=== PATIENT | female | born 1945 | race Caucasian/White ===

== ENCOUNTER 2020-05-20 14:40 | Outpatient (CLI) | payer MEDICARE, SELFPAY ==
--- NOTE | ~2020-05-20 | MM_ITS ---
EXAMINATION: MM screening ric BI w kimberley HISTORY: Screening TECHNIQUE: Craniocaudal and mediolateral oblique 3-D tomosynthesis images were obtained and synthetic 2-D images were generated. CAD analysis was submitted and interpreted. COMPARISON: Comparison to multiple prior studies sequentially, with oldest reviewed study dated 10/20. BREAST PARENCHYMAL COMPOSITION: Breast composed of scattered areas of fibroglandular density FINDINGS: Breast asymmetries are stable. There is no evidence of suspicious mass, calcification, or a rchitectural distortion to suggest malignancy in either breast. There has been no suspicious interval change. IMPRESSION: 1. No mammographic evidence of malignancy. 2. Recommend routine screening mammography in one year. BI-RADS Category 1: Negative Reviewed, dictated and finalized at location A.
--- NOTE | ~2020-05-20 | DEXA_ITS ---
Bone Density Report Name: Sravanthi Casey Age: 74 Sex: Female Ethnicity: White Date of : 1945 Indication: osteopenia; monitoring treatment; height loss; Referring Provider: NICOLE SANCHEZ Study: Bone densitometry was performed. Exam Date: May 20, 2020 Accession number: [id number] Bone Density: Region BMD T-score Z-score Classification AP Spine (L1-L4) 0.921 -1.1 1.2 Osteopenia Femoral Neck (Left) 0.729 -1.1 0.9 Osteopenia Total Hip (Left) 0.785 -1.3 0.4 Osteopenia Total Hip Bilateral Avg 0.785 -1.3 0.4 Osteopenia Femoral Neck (Right) 0.663 -1.7 0.3 Osteopenia Total Hip (Right) 0.783 -1.3 0.4 Osteopenia World Health Organization criteria for BMD impression classify patients as: Normal (T-score at or above -1.0), Osteopenia (T-score between -1.0 and -2.5), or Osteoporosis (T-score at or below -2.5). 10-year Fracture Risk: FRAX not reported because: Treated for osteoporosis Previous Exams: Region Exam Age BMD T-score BMD Change BMD Change Date g/cm2 vs Baseline vs Previous AP Spine(L1-L4) 05/20/2020 74 0.921 -1.1 -0.111(-10.8%) -0.017(-1.9%) 07/11/2017 72 0.938 -1.0 -0.094(-9.1%)# -0.051(-5.2%)* 10/20/2014 69 0.989 -0.5 -0.042(-4.1%)# -0.068(-6.5%)# 01/11/2010 64 1.058 0.1 0.026(2.5%)* 0.026(2.5%)* 06/18/2007 61 1.032 -0.1 Total Hip(Left) 05/20/2020 74 0.785 -1.3 -0.061(-7.3%)# 0.017(2.2%) 07/11/2017 72 0.769 -1.4 -0.078(-9.3%)# -0.066(-7.9%)* 10/20/2014 69 0.834 -0.9 -0.013(-1.5%)# -0.035(-4.0%)# 01/11/2010 64 0.869 -0.6 0.022(2.6%) 0.022(2.6%) 06/18/2007 61 0.847 -0.8 Total Hip(Right) 05/20/2020 74 0.783 -1.3 -0.049(-5.9%)# -0.001(-0.2%) 07/11/2017 72 0.785 -1.3 -0.048(-5.8%)# -0.016(-2.0%) 10/20/2014 69 0.801 -1.2 -0.032(-3.8%)# -0.023(-2.8%)# 01/11/2010 64 0.824 -1.0 -0.009(-1.1%) -0.009(-1.1%) 06/18/2007 61 0.833 -0.9 *Denotes significance at 95% confidence level, LSC for AP Spine = 0.022 g/cm2, LSC for Total Hip = 0.027 g/cm2 Clinical Information Provided by Patient: Is being treated for osteoporosis Has used the following medications: Vitamin D, Calcium Patient maximum height was 62 Drinks caffeinated beverages Onset of menses at age 14 Number of children 0 Impression: The patient has low bone mass, based on the Right Femoral Neck T-score. No significant bone loss was observed. Discussion: PATIENT UNDER TREATMEN
== END 2020-05-20 14:41 | disposition home or self-care (01) ==
LOC: ANHIMG 14:41
PROVIDERS: PCP Family Medicine; Visit Provider Obstetrics & Gynecology Gynecology
DX: Z12.31 Encounter for screening mammogram for malignant neoplasm of breast (principal); Z78.0 Asymptomatic menopausal state; M85.89 Other specified disorders of bone density and structure, multiple sites
CPT/HCPCS: 77063; 77067; 77080

== ENCOUNTER 2021-05-26 14:26 | Outpatient (CLI) | payer MEDICARE, SELFPAY ==
--- NOTE | ~2021-05-26 | MM_ITS ---
EXAMINATION: MM screening ric BI w kimberley HISTORY: Screening TECHNIQUE: Craniocaudal and mediolateral oblique 3-D tomosynthesis images were obtained and synthetic 2-D images were generated. CAD analysis was submitted and interpreted. COMPARISON: Comparison to multiple prior studies sequentially, with oldest reviewed study dated 03/27. BREAST PARENCHYMAL COMPOSITION: There are scattered areas of fibroglandular density. FINDINGS: There is no evidence of suspicious mass, calcification, or architectural distortion to sugg est malignancy in either breast. There has been no suspicious interval change. IMPRESSION: 1. No mammographic evidence of malignancy. 2. Recommend routine screening mammography in one year. BI-RADS Category 1: Negative Reviewed, dictated and finalized at location A.
== END 2021-05-26 14:27 | disposition home or self-care (01) ==
LOC: ANHIMG 14:28
PROVIDERS: PCP Family Medicine; Visit Provider Obstetrics & Gynecology Gynecology
DX: Z12.31 Encounter for screening mammogram for malignant neoplasm of breast (principal)
CPT/HCPCS: 77063; 77067

== ENCOUNTER 2022-08-10 15:26 | Outpatient (CLI) | payer MEDICARE, SELFPAY ==
--- NOTE | ~2022-08-10 | DEXA_ITS ---
Bone Density Report Name: MIMI MAYBERRY Age: 77 Sex: Female Ethnicity: White Date of : 1945 Indication: postmenopausal; screening for osteoporosis; height loss; Referring Provider: NIOCLE SANCHEZ Study: Bone densitometry was performed. Exam Date: August 10, 2022 Accession number: [id number] Bone Density: Region BMD T-score Z-score Classification AP Spine(L1-L4) 0.904 -1.3 1.2 Osteopenia Femoral Neck (Left) 0.740 -1.0 1.1 Normal Total Hip (Left) 0.802 -1.2 0.7 Osteopenia Femoral Neck (Right) 0.616 -2.1 0.0 Osteopenia Total Hip (Right) 0.730 -1.7 0.1 Osteopenia Total Hip Mean 0.766 -1.5 0.4 Osteopenia World Health Organization criteria for BMD impression classify patients as: Normal (T-score at or above -1.0), Osteopenia (T-score between -1.0 and -2.5), or Osteoporosis (T-score at or below -2.5). 10-year Fracture Risk(1): Major Osteoporotic Fracture 14% Hip Fracture 3.6% Reported Risk Factors: [place] (), Neck BMD=0.616, BMI=29.2 (1) FRAX(R) Version 3.08. Fracture probability calculated for an untreated patient. Fracture probability may be lower if the patient has received treatment. Clinical Information Provided by Patient: Has used the following medications: Vitamin D Patient maximum height was 62 Drinks caffeinated beverages Onset of menses at age 14 Number of children 0 Impression: The patient has low bone mass, based on the Right Femoral Neck T-score. The patient has an estimated ten-year risk of hip fracture of 3.6% and an estimated ten-year risk of major fracture of 14%, based on the WHO FRAX algorithm. Discussion: BONE DENSITY IS LOW AT ONE OR MORE SKELETAL SITES. THE PATIENT'S BMD AND CLINICAL RISK FACTORS CONTRIBUTE TO THIS PATIENT'S INCREASED RISK OF FRACTURE. This patient's lowest T-score is low at one or more skeletal sites. It meets the World Health Organization's (WHO) criteria for ?low bone mass? (T-score between -1.0 and -2.5). The patient's 10-year risk of hip fracture as calculated by FRAX exceeds the threshold where pharmacological therapy is recommended by the National Osteoporosis Foundation (NOF). However, all treatment decisions require clinical judgment and consideration of individual patient factors, including patient preferences, comorbidities, previous drug use, risk factors not captured in the FRAX model (e.g., frailty, falls, vitamin D deficiency, increased bone turnover, interval significant decline in bone density) and possible under or overestimation of fracture risk by FRAX. The patient should follow a healthful lifestyle (good nutrition with adequate calcium and vitamin D, and appropriate weight-bearing exercise). Follow-Up: Consider a repeat BMD and Vertebral Fracture Assessment (VFA) exam in 2 years or sooner
--- NOTE | ~2022-08-10 | MM_ITS ---
EXAMINATION: MM screening ric BI w kimberley HISTORY: Screening mammogram TECHNIQUE: Craniocaudal and mediolateral oblique 3-D tomosynthesis images were obtained and synthetic 2-D images were generated. CAD analysis was submitted and interpreted. COMPARISON: 05/26/2021, 05/20/2020, 04/15/2019 bilateral screening mammogram examinations BREAST PARENCHYMAL COMPOSITION: There are scattered areas of fibroglandular density. FINDINGS: There is no evidence of suspicious mass, calcification, or architectural distortion to sugg est malignancy in either breast. There has been no suspicious interval change. IMPRESSION: 1. No mammographic evidence of malignancy. 2. Recommend routine screening mammography in one year. BI-RADS Category 1: Negative Reviewed, dictated and finalized at location A. STRIAL MACHINE OPERATOR
== END 2022-08-10 15:27 | disposition home or self-care (01) ==
PROVIDERS: PCP Family Medicine; Visit Provider Obstetrics & Gynecology Gynecology
DX: Z12.31 Encounter for screening mammogram for malignant neoplasm of breast (principal); Z78.0 Asymptomatic menopausal state; M85.88 Other specified disorders of bone density and structure, other site; M85.852 Other specified disorders of bone density and structure, left thigh; M85.851 Other specified disorders of bone density and structure, right thigh
CPT/HCPCS: 77063; 77067; 77080

== ENCOUNTER 2023-06-28 12:39 | Outpatient (CLI) | payer MEDICARE, SELFPAY ==
--- NOTE | ~2023-06-28 | US_ITS ---
EXAMINATION: US pelvic complete w TV DATE: 06/28/2023 14:39 INDICATION: Postmenopausal bleeding TECHNIQUE: Multiple transabdominal and endovaginal sonographic images of the pelvis were obtained. COMPARISON: None. FINDINGS: The uterus measures 7.4 x 3.4 x 4.4 cm. The endometrial complex measures 1.9 cm. The left o vary is not visualized however no left adnexal abnormality is seen. The right ovary measures 1.0 x 1. 6 x 1.0 cm. There is normal vascular flow in the right ovary. There is no free fluid in the pelvis. IMPRESSION: 1. Endometrial thickening which may be due to hyperplasia, polyp, or malignancy. Endometrial sampling is recommended. Reviewed, dictated and finalized at location F. IMPRESSION: 1. Endometrial thickening which may be due to hyperplasia, polyp, or malignancy . Endometrial sampling is recommended.
== END 2023-06-28 12:40 | disposition home or self-care (01) ==
PROVIDERS: PCP Family Medicine; Visit Provider Obstetrics & Gynecology Gynecology
DX: N95.0 Postmenopausal bleeding (principal)
CPT/HCPCS: 76830; 76856

== ENCOUNTER 2023-08-19 02:52 | Day surgery (SDC) | payer MEDICARE, SELFPAY ==
--- NOTE | 2023-08-09 13:33 | PC.NURSE ---
Report to the Outpatient Waiting Room, entrance under the green pavilion located off [facility], at time _1200 on date __08/19/23 . Planned Procedure Time: __1400 . Time changes happen often and if your time is changed the preop area will call you the afternoon before. - You and your visitor will be asked to self-screen and do not enter if you have any COVID symptoms. - A mask is optional within the hospital at this time. Patients may have clear liquids (water, carbonated beverages, clear teas, apple juice) until 3 hours prior to surgery with a maximum of 20 ounces. - No food from midnight until time of surgery - Infants may have breast milk until 4 hours before surgery, formula 6 hours prior to surgery. - Children will be allowed to drink immediately following surgery. If applicable, please bring a bottle or sippy cup to assist with drinking. Juice, water, soda, and popsicles are readily available. For infants on formula, please bring formula the day of surgery. Pacifiers are allowed. Take the following medications with a SIP of water the morning of surgery: ___SERTRALINE DO NOT STOP ANY OF YOUR OTHER PRESCRIPTION MEDICATIONS PRIOR TO SURGERY ?EXCEPT THE FOLLOWING Medications to discontinue per physician NONE Please no make-up, nail belgian, hairspray, perfume, deodorant, or body powder the day of surgery. No jewelry (including any body piercings) or valuables the day of surgery, leave them at home. Please take a shower or bath the night before, or the morning of, surgery with an antibacterial soap. Wear comfortable, loose fitting clothing. Children are encouraged to wear pajamas. - Jewelry must be removed prior to entering the operating room. Rings and piercings that are not removed may be cut off. - The hospital will not accept responsibility for valuables. - Please leave all valuables, including medications, at home the day of surgery. If you are going home after surgery, a licensed team otr truck driver must drive you home. - NO public transportation without another adult if you receive anesthesia. - We recommend that an adult stay with you for 24 hours following discharge. - We also recommend that you do not drive, make important decision, drink alcoholic beverages, or take any drugs that were not prescribed by your health care provider for at least 24 hours after your discharge time. For Pediatric surgeries, we recommend two adults accompany the child home. Follow any additional instructions given to you from your surgeon. If you or anyone in your household have experienced Covid symptoms in the past week, please notify your surgeon or the nurse liaison at the phone number below for possible testing. Telephone instructions given to ____PATIENT and asked if any additional questions and then verbalized understanding. Patient advised to call surgeon office or pre surgery nurse liaison [phone] if any additional questions.
[2023-08-09 13:47] VITALS: BMI 26.5
--- NOTE | 2023-08-19 08:26 | P.HP_ITS ---
History of Present Illness History of Present Illness Consent: Risks, benefits, and alternatives have been discussed and questions answered. Patient agrees to proceed with procedure. Chief complaint: Post Menopausal Bleeding Narrative: Sravanthi Casey is a 78 year old female with postmenopausal bleeding. Patient underwent pelvic ultrasound which showed an endometrium of 19mm. It was recommended to proceed with D&C hysteroscopy to further evaluate. Risks of infection, bleeding, and perforation were reviewed. Possible pathology was also discussed. Patient voiced understanding and agrees to proceed. Review of Systems Review of Systems: not repeated day of surgery; patient states no changes in status [facility] Past Medical History Medical History (Updated 08/19/23 @ 08:29 by Shelley Vargas MD) Anxiety Depression Elevated cholesterol History of benign breast biopsy 1993 and 1996 History of kidney stones Rosacea Social History Social History Smoking packs per day: 1 Smoking cigarettes per day: 20.0 Years smoked: 10 Smoking pack-years: 10.00 Smoking status: Former smoker Tobacco type: cigarettes Smoking end date: 09/09/89 Substance use: current Substance use type: marijuana Last use: 07/10/23 Living arrangements: alone Spiritual care concerns: No Meds Home Medications and Allergies Home Medications Medication Instructions Recorded Confirmed Type atorvastatin 80 mg tablet 80 mg PO DAILY 08/09/23 08/09/23 History celecoxib 200 mg capsule 200 mg PO DAILY 08/09/23 08/09/23 History indapamide 2.5 mg tablet 2.5 mg PO DAILY 08/09/23 08/09/23 History lemborexant 5 mg tablet (Dayvigo) 5 mg PO HS 08/09/23 08/09/23 History omeprazole 20 mg capsule,delayed 20 mg PO DAILY 08/09/23 08/09/23 History release raloxifene 60 mg tablet 60 mg PO DAILY 08/09/23 08/09/23 History sertraline 100 mg tablet 100 mg PO DAILY 08/09/23 08/09/23 History zolpidem 12.5 mg tablet,extended 12.5 mg PO HS 08/09/23 08/09/23 History release,multiphase Allergies Allergy/AdvReac Type Severity Reaction Status Date / Time No Known Allergies Allergy Verified 08/09/23 13:22 Exam Const: General: healthy appearing and alert Orientation/consciousness: patient oriented x3 Resp: Effort & Inspection: normal respiratory effort GI: GI Palp: Yes Soft to palpation, No Tenderness to palpation present (GI) and No Palpable mass present : External Female Exam: normal external appearance Speculum Exam - Vagina: normal appearance of the vagina and normal vaginal discharge Speculum Exam - Cervix: normal appearance of the cervix Bimanual exam- vagina & uterus: uterine size normal and consistency normal Bimanual Exam- Adnexa, other: normal adnexae and No adnexal tenderness Neuro: General: patient oriented x3 Assessment and Plan Assessment and plan (1) Post-menopausal bleeding: Code(s): N95.0 - Postmenopausal bleeding Status: Acute Assessment and Plan: plan to proceed with D&C hysteroscopy
--- NOTE | 2023-08-19 08:26 | WPDHPUPDATE1 ---
History and Physical Update Update Date/Time: 08/19/23 08:26 History and Physical has been reviewed, including an updated exam of the patient. There are NO changes in the patient's condition. Risks, benefits, and alternatives have been discussed and questions answered. Patient agrees to proceed with procedure.
[2023-08-19 12:25] VITALS: BP 144/69; PULSE 70; RESP 20; TEMP 36.3; O2SAT 96
[2023-08-19] MEDS: ACETAMINOPHEN 500 MG TABLET 1000 MG PO (12:28)
[2023-08-19] MEDS: LACTATED RINGERS 1,000 ML 30 ML IV CONT (12:50)
--- NOTE | 2023-08-19 13:07 | P.PNAN_ITS ---
Anes - Initial Pre Proc Eval Procedure: Operation Date: 08/19/23 14:00 Proposed Procedures p Hysteroscopy Dilation and Curettage - Shelley Vargas MD Date/Time: 08/19/23 13:07 Surgeon: Shelley Vargas MD Pre Op Diagnosis: Post Menopausal Bleeding Patient Data Age: 78 Gender: F Height: 1.57 m Weight: 68.15 kg Last Vital Signs Temp 36.3 C L 08/19/23 12:25 Pulse 70 08/19/23 12:25 Resp 20 08/19/23 12:25 BP 144/69 H 08/19/23 12:25 Pulse Ox 96 08/19/23 12:25 O2 Del Method Room Air 08/19/23 12:25 Allergies Allergy/AdvReac Type Severity Reaction Status Date / Time No Known Allergies Allergy Verified 08/19/23 12:24 Home Medications Medication Instructions Recorded Confirmed Type atorvastatin 80 mg tablet 80 mg PO DAILY 08/09/23 08/19/23 History celecoxib 200 mg capsule 200 mg PO DAILY 08/09/23 08/19/23 History indapamide 2.5 mg tablet 2.5 mg PO DAILY 08/09/23 08/19/23 History lemborexant 5 mg tablet (Dayvigo) 5 mg PO HS 08/09/23 08/19/23 History omeprazole 20 mg capsule,delayed 20 mg PO DAILY 08/09/23 08/19/23 History release raloxifene 60 mg tablet 60 mg PO DAILY 08/09/23 08/19/23 History sertraline 100 mg tablet 100 mg PO DAILY 08/09/23 08/19/23 History zolpidem 12.5 mg tablet,extended 12.5 mg PO HS 08/09/23 08/19/23 History release,multiphase Patient hx anesthesia problems: none Family hx anesthesia problems: none Results Review: All pre-operative results and documents have been reviewed as part of the pre- operative evaluation. [facility] Past Medical History Medical History Anxiety Depression Elevated cholesterol History of benign breast biopsy 1993 and 1996 History of kidney stones Rosacea Social History Social History Smoking packs per day: 1 Smoking cigarettes per day: 20.0 Years smoked: 10 Smoking pack-years: 10.00 Smoking status: Former smoker Tobacco type: cigarettes Smoking end date: 09/09/89 Substance use: current Substance use type: marijuana Last use: 07/10/23 Living arrangements: alone Spiritual care concerns: No Anes - Eval Final PreProcedure Day of Procedure 08/19/23 13:07 Patient weight: overweight Heart: regular rate and rhythm Lungs: decreased breath sounds Airway: Mallampati scale class II Neurological: alert and oriented Last oral intake: >/= 8 hours ASA classification: III Emergent: no Anesthetic plan: proceed Anesthesia type and monitoring: general GIVS and standard monitoring Results Review: All pre-operative results and documents have been reviewed as part of the pre- operative evaluation. Informed Consent: The patient's anesthetic plan and its attendant risks and benefits were discussed with the patient/family/POA. Questions were solicited and answers provided to the satisfaction of the patient/family/POA.
[2023-08-19 14:04] VITALS: BP 145/68; PULSE 66; RESP 16; O2SAT 98
--- NOTE | 2023-08-19 14:06 | P.OP_ITS ---
Procedure Note - Detailed Date of Procedure 08/19/23 Pre-op Diagnosis Post Menopausal Bleeding Post-op Diagnosis Same Procedure Performed D&C hysteroscopy Surgeon Shelley Vargas MD Anesthesia MAC Findings The uterus sounds to 8cm. The endometrium is thickened with papillary lesions that are quite vascular. There are also irregular calcifications. Description of Procedure The patient is taken to the operating room and placed in the dorsal lithotomy position. She was prepped and draped in usual sterile fashion. [place] speculum was placed in the vagina and the cervix grasped on the anterior lip with a tenaculum. The uterus is sounded to 8cm. The hysteroscope with not pass the internal cervix therefore the cervix is serially dilated to a 5 Hegar. The hysteroscope was then able to enter the cavity. The above-stated findings were noted and the Aveeta resection device is placed. Throughout the procedure the cavity is very bloody and visualization is minimal. The endometrial lesions are removed to the best of my ability given the circumstances. When visualization went to 0 and the cavity was not able to be cleared with excess fluid, the hysteroscope was removed. The sharp 00 curette was used to curette the endometrium until a good uterine cry was noted in all areas. All instruments are removed. Sponge, needle, and instrument counts are correct per the OR staff. Patient was awakened from anesthesia and taken to recovery in stable condition. Estimated Blood Loss 25 Drains No Packing No Pathology Yes ( Endometrial curettings and shavings) Complications No immediate complications Condition Stable Disposition PACU
[2023-08-19] MEDS: oxyCODONE HCL (*CRX) 2.5 MG TAB IR PO (14:26)
[2023-08-19 14:30] VITALS: BP 168/85; PULSE 53; RESP 16; O2SAT 100
[2023-08-19] MEDS: fentaNYL CITRATE INJ (*CRX) 100 MCG/2 ML VIAL 25 MCG IV PUSH (14:39)
[2023-08-19 15:00] VITALS: BP 153/66; PULSE 46; RESP 16
[2023-08-19 15:15] VITALS: BP 153/66; PULSE 46; RESP 16
== END 2023-08-19 15:25 | disposition home or self-care (01) ==
PROVIDERS: PCP Family Medicine; Visit Provider Obstetrics & Gynecology Gynecology
PROC: 0U5B8ZZ Destruction of Endometrium, Via Natural or Artificial Opening Endoscopic (ICD-10-PCS; CPT 58563; principal; 2023-08-19 14:00)
DX: C54.1 Malignant neoplasm of endometrium (principal); N95.0 Postmenopausal bleeding; E78.00 Pure hypercholesterolemia, unspecified; F41.9 Anxiety disorder, unspecified; F32.A Depression, unspecified; Z87.891 Personal history of nicotine dependence; F12.90 Cannabis use, unspecified, uncomplicated
CPT/HCPCS: 58558; 88305; 88342; 88360; A9270; J2704; J3010; J7120

== ENCOUNTER 2025-04-13 15:00 | Outpatient (CLI) | payer MEDICARE, SELFPAY ==
--- NOTE | ~2025-04-13 | MM_ITS ---
EXAMINATION: MM screening ric BI w kimberley HISTORY: Screening TECHNIQUE: Craniocaudal and mediolateral oblique 3-D tomosynthesis images were obtained and synthetic 2-D images were generated. CAD analysis was submitted and interpreted. COMPARISON: Comparison to multiple prior studies sequentially, with oldest reviewed study dated 07/11. BREAST PARENCHYMAL COMPOSITION: There are scattered areas of fibroglandular density. FINDINGS: There is no evidence of suspicious mass, calcification, or architectural distortion to sug gest malignancy in either breast. IMPRESSION: 1. No mammographic evidence of malignancy. 2. Recommend routine screening mammography in one year. BI-RADS Category 1: Negative Reviewed, dictated and finalized at location B.
--- OUTSIDE RECORDS SUMMARY | 2025-04-13 15:07 | XMS_ITS | Encounter Summary ---
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 [address] [facility] [address] [place] [id number] 04/19/2025 11:25 AM CDT - 04/19/2025 12:10 PM CDT Surgery [facility] [place] [address] [place] [address] Umberto Swift MD [facility] [address] REMOVAL PORT A CATH Scheduled Procedures Name Priority Associated Diagnoses Date/Ti me REMOVAL PORT A CATH NON USE 04/19/2025 11:25 AM CDT documented as of this encounter Procedures Procedure Name Priority Date/Time Associated Diagnosis Comments COLONOSCOPY - SCAN 10/28/2015 12 :00 AM LOW PRESSURE FIRER documented in this encounter Results * COLONOSCOPY - SCAN (10/28/2015 12:00 AM LOW PRESSURE FIRER) Narrative 10/28/2015 12:00 AM LOW PRESSURE FIRER Ordered by an unspecified provider. us Historical Provider Final Res ult documented in this encounter Visit Diagnoses Not on filedocumented in this encounter Care Teams Mine Laborer Relationship Specialty Start Date End Date Kieran Hernández DO PCP - General Family Medicine 02/25/19 documented as of this encounter
--- OUTSIDE RECORDS SUMMARY | 2025-04-13 15:07 | XMS_ITS | Encounter Summary ---
Author Organization [facility] Address [address] [facility] [place] [address] Care Team Providers Care Research Quality Assurance Specialist Name Role Phone Kieran Hernández DO Primary Care Provider + Reason for Referral * Radiology Services (Routine) - Closed Specialty Diagnoses / Procedures Referred By Contac t Referred To Contact CT Scan Diagnoses Endometrial cancer (HCC) Procedures CT Chest Abdomen Pelvis [address] Lane Palmer MD [address] [address] Phone: tel:[phone] fax:[phone] [facility] [address] [place] [address] Phone: tel: fax: Referral ID Status Reason Start Date Expiration Date Visits Re quested Visits Authorized [id number] Closed 03/31/2025 09/27/2025 1 1 Reason for Visit * Radiology Services (Routine) - Closed Specialty Diagnoses / Procedures Referred By Contac t Referred To Contact CT Scan Diagnoses Endometrial cancer (HCC) Procedures CT Chest Abdomen Pelvis W Lane Palmer MD [address] [address] Phone: tel:[phone] fax:[phone] [facility] [address] [place] [address] Phone: tel: fax: Referral ID Status Reason Start Date Expiration Date Visits Re quested Visits Authorized [id number] Closed 03/31/2025 09/27/2025 1 1 Encounter Details Date Type Department Care Team (Latest Contact Info) Description 04/12/2025 8:56 AM CDT - 04/12/2025 11:59 PM CDT Hospital Encounter [facility] Imaging Services - CT Scan [address] [place], [place] [id number] Lane Park MD [address] [address] Discharge Disposition: Home or Self Care Social History Tobacco Use Types Packs/Day Years Used Date Smoking Tobacco: Former Cigarettes Smokeless Tobacco: Never Alcohol Use Standard Drinks/Week Comments Yes 0 (1 standard drink = 0.6 oz pur e alcohol) occassional AUDIT-C Answer Date Recorded Q1: How often do you have a drink containing alc ohol? Monthly or less 10/01/2023 Q2: How many drinks containi ng alcohol do you have on a typical day when you are drinking? 1 or 2 10/01/2023 Q3: How often do you have si x or more drinks on one occasion? 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 Gender Identity Not on file Sexual Orientation Not on file documented as of this encounter Medications at Time of Discharge atorvastatin (Lipitor) 80 MG tablet Take 1 (one) tablet by mouth once daily 08/19/2023 celecoxib (CeleBREX) 100 MG capsule Take 1 (one) capsule by mouth once daily 11/09/2023 indapamide (Lozol) 2.5 MG tablet 07/17/2023 lidocaine-priloc tashi (Emla) 2.5-2.5 % creamIndications :Local Anesthesia Apply to port a cath 30-60 minutes prior to chemotherapy and or labs Reasons: Anesthesia to a Specific Part of the Body 30 g 3 10/17/2023 LORazepam (Ativan) 0.5 MG tabletIndication s:Cancer Chemotherapy-Ind uced Nausea and Vomiting Take 1 (one) tablet by mouth every 8 hours as needed for Anxiety (nausea) Reasons: Nausea and Vomiting caused by Cancer Chemotherapy 30 tablet 3 10/17/2023 omeprazole (PriLOSEC) 20 MG capsule Take 1 (one) capsule by mouth once daily 01/21/2024 ondansetron (Zofran) 8 MG tabletIndication s:Cancer Chemotherapy-Ind uced Nausea and Vomiting Take 1 (one) tablet by mouth every 8 hours as needed for Nausea/Vomiting Reasons: Nausea and Vomiting caused by Cancer Chemotherapy 30 tablet 3 10/17/2023 raloxifene (Evista) 60 MG tablet Take 1 (one) tablet by mouth once daily 12/26/2022 sertraline (Zoloft) 100 MG tablet Take 1 (one) tablet by mouth at bedtime 07/17/2023 spironolactone (Aldactone) 100 MG tablet Take 1 (one) tablet by mouth once daily 07/17/2023 zolpidem (Ambien) 10 MG tablet 11/12/2023 documented as of this encounter Plan of Treatment Upcoming Encounters Date Type Department Care Team (Late st Contact Info) Description 04/21/2025 11:00 AM CDT Office Visit [facility] - DOCUMENT CONTROL COORDINATOR [address] [place] [address] Lane Park MD [address] [place] [address] documented as of this encounter Procedures Procedure Name Priority Date/Time Associated Diagnosis Comments CT CHEST ABDOMEN PELVIS W CONT Routine 04/12/2025 10:42 AM CDT Endometrial cancer (HCC) ISTAT CREATININE Routine 04/12/2025 10:3 0 AM CDT documented in this encounter Results * CT Chest Abdomen Pelvis W Cont (04/12/2025 10:42 AM CDT) Anatomical Region Laterality Modality Chest, Abdomen, Pelvis Computed Tomography 04/12/2025 10:5 6 AM CDT Impressions 04/12/2025 12:43 PM CDT IMPRESSION: 1.No evidence of recurrent or metastatic disease in chest, abdomen, and pelvis. 2.Grossly stable bilateral pulmonary nodules, as described. > Dictated by Magan Felix MD (president sales and marketing). > Dictated by Uniform Attendant I, Pete Lombardo MD have personally reviewed and interpreted this examination/study. > Interpreting Provider: Pete Lombardo MD on 04/12/2025 12:43 PM Narrative 04/12/2025 12:43 PM CDT PROCEDURE: CT CHEST ABDOMEN PELVIS W CONT, DATE/TIME OF EXAM: 04/12/2025 10:43 AM, LOCATION [facility] INDICATION: C54.1: Endometrial cancer (HCC) COMPARISON: CT of chest abdomen and pelvis 05/06/2024. TECHNIQUE: CT of the chest, abdomen, and pelvis was performed after the uneventful administration of 100 mL of Isovue 370 intravenous contrast according to standard protocol. FINDINGS: Port-A-Cath reservoir is again noted in subcutaneous tissues of right upper anterior chest wall with right internal jugular accessed catheter terminating in superior cavoatrial junction. Chest: Lower Neck and Axillae: The imaged thyroid is unremarkable, with previously demonstrated cyst within its right lobe not imagedr. No enlarged axillary or enlarged cervical lymph nodes. Lungs: Minimal bibasilar atelectasis. No pulmonary parenchymal or airway process is otherwise present. No pleural fluid or pneumothorax is present. Multiple pulmonary nodules are noted as below: *A 4 mm lobulated solid nodule in left lung apex (series 4, image 18), unchanged. *9 mm pericystic solid nodule in posterior segment of right upper lobe (series 4, image 33), unchanged. *4 mm peripheral nodule in posterior segment of right upper lobe (series 4, image 38), is less conspicuous in current imaging. *4 mm groundglass nodule in superior segment of right lower lobe (series 4, image 66) is slightly better visualized in current imaging but grossly unchanged. No new pulmonary nodules are identified. Heart and Pericardium: The cardiac chambers are normal in size. No pericardial fluid or thickening is present. Mediastinum and Lourdes: A large partially calcified lymph node in right paratracheal/precarinal region is unchanged and measures up to 5.7 cm in diameter. A few additional smaller calcific mediastinal and right hilar lymph nodes are also unchanged. Thoracic Vasculature: No vascular abnormality is present. Abdomen/pelvis: Liver: Multiple subcentimeter hypoattenuating observations within the right hemiliver are too small to characterize, but likely represent hepatic cysts, given their stability. A few small calcific granulomas are again noted throughout the liver. Gallbladder and Bile Ducts: Normal. Spleen: Multiple calcified granulomas are noted in the spleen, likely sequelae of prior granulomatous disease. Pancreas: Normal. Adrenals: Normal. Kidneys: Redemonstrated grossly unchanged size of multiple bilateral renal cysts, with the largest measuring up to about 6 cm in right and 3 cm left sides in maximal diameters. Gastrointestinal: Redemonstrated a small hiatal hernia. There is suggestion of mild wall thickening of the imaged lower esophagus which may represent esophagitis likely secondary to reflux. The stomach and visualized loops of large and small bowel are otherwise unremarkable. Normal appendix. Mesentery/Peritoneum/Retroperitoneum: No free fluid in the abdomen or pelvis. No free intraperitoneal air. No abdominal or retroperitoneal lymphadenopathy. Bladder: Normal. Reproductive Organs: The uterus is absent. No adnexal lesions are identified. Abdominal Vasculature: Atherosclerotic calcification of the aorta and its branch vessels. Bones: Bone windows demonstrate no suspicious lytic or blastic lesions. Redemonstrated mild superior endplate compression deformity of L1 vertebral body with less than 20% height loss. The visible osseous structures are otherwise intact. Degenerative changes are seen in the spine with grade 1 anterolisthesis of L4 over L5 vertebral body. Soft tissues: Normal. Procedure Note Pete Lombardo MD - 04/12/2025 PROCEDURE: CT CHEST ABDOMEN PELVIS W CONT, DATE/TIME OF EXAM: 04/12/2025 10:43 AM, LOCATION [facility] INDICATION: C54.1: Endometrial cancer (HCC) COMPARISON: CT of chest abdomen and pelvis 05/06/2024. TECHNIQUE: CT of the chest, abdomen, and pelvis was performed after the uneventful administration of 100 mL of Isovue 370 intravenous contrast according to standard protocol. FINDINGS: Port-A-Cath reservoir is again noted in subcutaneous tissues of rightupper anterior chest wall with right internal jugular accessed catheter terminating in superior cavoatrial junction. Chest: Lower Neck and Axillae: The imaged thyroid is unremarkable, withpreviously demonstrated cyst within its right lobe not imagedr. No enlargedaxillary or enlarged cervical lymph nodes. Lungs: Minimal bibasilar atelectasis. No pulmonary parenchymal or airway process is otherwise present. No pleural fluid or pneumothorax ispresent. Multiple pulmonary nodules are noted as below: *A 4 mm lobulated solid nodule in left lung apex (series 4, image 18), unchanged. *9 mm pericystic solid nodule in posterior segment of right upper lobe (series 4, image 33), unchanged. *4 mm peripheral nodule in posterior segment of right upper lobe (series4, image 38), is less conspicuous in current imaging. *4 mm groundglass nodule in superior segment of right lower lobe (series4, image 66) is slightly better visualized in current imaging but grossly unchanged. No new pulmonary nodules are identified. Heart and Pericardium: The cardiac chambers are normal in size. No pericardial fluid orthickening is present. Mediastinum and Lourdes: A large partially calcified lymph node in right paratracheal/precarinal region is unchanged and measures up to 5.7 cm in diameter. A few additional smaller calcific mediastinal and right hilar lymph nodes are also unchanged. Thoracic Vasculature: No vascular abnormality is present. Abdomen/pelvis: Liver: Multiple subcentimeter hypoattenuating observations within theright hemiliver are too small to characterize, but likely represent hepatic cysts, given their stability. A few small calcific granulomas are again noted throughout the liver. Gallbladder and Bile Ducts: Normal. Spleen: Multiple calcified granulomas are noted in the spleen, likely sequelae of prior granulomatous disease. Pancreas: Normal. Adrenals: Normal. Kidneys: Redemonstrated grossly unchanged size of multiple bilateralrenal cysts, with the largest measuring up to about 6 cm in right and 3 cmleft sides in maximal diameters. Gastrointestinal: Redemonstrated a small hiatal hernia. There issuggestion of mild wall thickening of the imaged lower esophagus which mayrepresent esophagitis likely secondary to reflux. The stomach and visualized loopsof large and small bowel are otherwise unremarkable. Normal appendix. Mesentery/Peritoneum/Retroperitoneum: No free fluid in the abdomen or pelvis. No free intraperitoneal air. No abdominal or retroperitoneal lymphadenopathy. Bladder: Normal. Reproductive Organs: The uterus is absent. No adnexal lesions are identified. Abdominal Vasculature: Atherosclerotic calcification of the aorta andits branch vessels. Bones: Bone windows demonstrate no suspicious lytic or blastic lesions. Redemonstrated mild superior endplate compression deformity of [id number] body with less than 20% height loss. The visible osseous structures are otherwise intact. Degenerative changes are seen in the spine with grade1 anterolisthesis of L4 over L5 vertebral body. Soft tissues: Normal. IMPRESSION: 1.No evidence of recurrent or metastatic disease in chest, abdomen, and pelvis. 2.Grossly stable bilateral pulmonary nodules, as described. > Dictated by Magan Felix MD (president sales and marketing). > Dictated by Uniform Attendant I, Pete Lombardo MD have personally reviewed and interpreted this examination/study. > Interpreting Provider: Pete Lombardo MD on 04/12/2025 12:[address] ORDERABLES Final Result * (ABNORMAL) ISTAT CREATININE (04/12/2025 10:30 AM CDT) [facility] Creatinine POCT 1.30 0.60 - 1.30 mg/dL 04/12/2025 10:33 AM CDT [facility] eGFR by CKD-EPI 42(L) >90 mL/min/1.7 3 m2 04/12/2025 10:33 AM CDT [facility] Sample iSTAT DOUG 04/12/2025 10:33 AM CDT [facility] Blood BLOOD SPECIMEN / Unknown 04/12/2025 10:30 AM CDT 04/12/2025 10:[address] Park MD LAB - POINT OF CARE ORDERABLES Final Result [facility] [address] [place] [address] documented in this encounter Visit Diagnoses Diagnosis Endometrial cancer (HCC) Malignant neoplasm of corpus uteri, except isthmus documented in this encounter Administered Medications Inactive Administered Medications - up to 3 most recent administrations Medication Order MAR Action Action Date Dose Rate Site 0.9% NaCl injection 0-10 mL 0-10 mL, Intracatheter, ONCE PRN, Other, Contrast flush, 1 dose, Starting on Sat04/12/25 at 0931, Until Sat04/12/25 at 1026, For administration with contrast. $ Given 04/12/2025 10:26 AM CDT 10 mL barium 2 %(Readi-Cat 2)suspension 450 mL, Oral, ONCE, 1 dose, On Sat04/12/25 at 1000 $ Given - Contrast 04/12/2025 10:26 AM CDT 450 mL barium 2 %(Readi-Cat 2)suspension 450 mL, Oral, ONCE, 1 dose, On Sat04/12/25 at 1000 $ Given - Contrast 04/12/2025 10:26 AM CDT 450 mL iopamidol (Isovue 370) 76 % contrast Intravenous, CONTRAST ONCE, Starting on Sat04/12/25 at 0931, Until Sat04/13/25 at 0147 $ Given - Contrast 04/12/2025 10:26 AM CDT 100 mL documented in this encounter Care Teams Research Quality Assurance Specialist Relationship Specialty Start Date End Date Kieran Hernández DO [address] [place] [address] PCP - General Family Medicine 09/18/23 documented as of this encounter
--- OUTSIDE RECORDS SUMMARY | 2025-04-13 15:07 | XMS_ITS ---
Author Organization [facility] Address [address] [place] [address] Care Team Providers Care Dining Service Supervisor Name Role Phone Kieran Hernández DO Primary Care Provider + Active Problems Problem Noted Date Diagnosed Date Hypomagnesemia 12/17/2023 Hypokalemia 12/17/2023 S/P total hysterectomy and B SO (bilateral salpingo-oophorectomy) 10/30/2023 Endometrial cancer 10/17/2023 Seasonal allergies 10/17/2023 10/30/2023 Postmenopausal osteoporosis 10/17/202310/11 Hyperlipidemia 10/17/2023 10/30/2023 Depressive disorder 10/17/2023 10/30/2023 Chronic renal impairment, stage 3b 04/24/2023 10/30/2023 Overview (10/30/2023): Last Assessment & Plan: Stop nsaid Recheck sma 7 Full code status 04/19/2021 10/30/2023 Overview (10/30/2023): Last Assessment & Plan: No changes Primary osteoarthritis 10/13/2019 Overview (10/30/2023): Last Assessment & Plan: Patient is well controlled. Continue current treatment. Osteopenia after menopause 10/13/201910/30 Overview (10/30/2023): Last Assessment & Plan: Patient is well controlled. Continue current treatment. Essential hypertension 10/13/2019 Overview (10/30/2023): Last Assessment & Plan: Patient is well controlled. Continue current treatment. Primary insomnia 09/16/2017 10/30/2023 Overview (10/30/2023): Last Assessment & Plan: Failed several sleep aides in the past including trazodone, dayvigo. She has been well controlled on ambien skilled nursing. Dyslipidemia 09/19/2016 10/30/2023 Overview (10/30/2023): Last Assessment & Plan: Patient is well controlled. Continue current treatment. Barretts esophagus 09/19/2016 10/30/2023 Overview (10/30/2023): Last Assessment & Plan: Still follows with [facility]. Current Treatment and Therapy Plans ENDOMETRIAL (PACLITAXEL CARBOPLATIN) Q21 DAYS* Plan Start Date:11/05/2023 Plan Provider:Lane Park MD Linked Problems Endometrial cancer (HCC) Treatment Medications CARBOplatin (Paraplatin) Inf usion (AUC Dosing)PACLitaxel (Taxol) in 500 mL infusion PORT MAINTENANCE THERAPY PLAN* Plan Start Date:11/04/2023 Plan Provider:Lane Park MD Linked Problems Endometrial cancer (HCC) Treatment Medications No medications scheduled. Other Current Plans MAGNESIUM SULFATE THERAPY PLAN* Plan Start Date:12/18/2023 Plan Provider:Lane Park MD Linked Problems Hypomagnesemia Treatment Medications No medications scheduled. POTASSIUM CHLORIDE THERAPY PLAN* Plan Start Date:12/18/2023 Plan Provider:Lane Park MD Linked Problems HypomagnesemiaHypokalemia Treatment Medications No medications scheduled. Past Treatment and Therapy Plans No past plan information found. Radiation Treatments * Course C1 - Pelvis 01/06/2024 - 02/10/2024 Treatment Period Energy Fraction Dose Fractions Total Dose Plans Planned Pelvis 01/06/2024 - 02/10/2024 25 / 2 5 4,500 cGy Reference Points Delivered Lifetime Dose Tracking * Chemical Lifetime Dose Automatic Entry Manual Entr y Dose Length Product 492.63 mGy-cm 492.63 mGy-cm 0 mGy- cm
--- OUTSIDE RECORDS SUMMARY | 2025-04-13 15:07 | XMS_ITS | Encounter Summary ---
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 [address] [facility] [address] [place] [address] 04/19/2025 11:25 AM CDT - 04/19/2025 12:10 PM CDT Surgery [facility] [place] [address] [place] [address] Umberto Swift MD [facility] [address] [address] REMOVAL PORT A CATH Scheduled Procedures Name Priority Associated Diagnoses Date/Ti me REMOVAL PORT A CATH NON USE 04/19/2025 11:25 AM CDT documented as of this encounter Procedures Procedure Name Priority Date/Time Associated Diagnosis Comments CARDIOLOGY REPORT 02/15/2016 12: 00 AM CDT documented in this encounter Results * CARDIOLOGY REPORT (02/15/2016 12:00 AM CDT) Anatomical Region Laterality Modality Other Narrative 02/15/2016 12:00 AM CDT Ordered by an unspecified provider. us Historical Provider [facility] Final Result documented in this encounter Visit Diagnoses Not on filedocumented in this encounter Care Teams Repairer Kiln Car Relationship Specialty Start Date End Date Kieran Hernández DO PCP - General Family Medicine 02/25/19 documented as of this encounter
--- OUTSIDE RECORDS SUMMARY | 2025-04-13 15:07 | XMS_ITS | Clinical Summary ---
Author Organization [facility] Address [address] [place] [address] Care Team Providers Care Pharmacy Resident Name Role Phone Kieran Hernández DO Primary Care Provider + Source Comments [facility],non-owned Affiliates and Associated Physician Practices is amultiple site organization consisting of ambulatory clinics and hospital sitesin [place], [place], [place] and [place]. This disclosure is being madepursuant to the Care Everywhere program and may not contain all information available regarding this patient. Last updated 18.[facility] [employer] Allergies Active Allergy Reactions Criticality Noted Date Comments Niacin Rash Medium 09/18/2023 Medications * Be aware that medications may not be up to date on this document. Alwaysverify current medications with the patient. atorvastatin (Lipitor) 80 MG tablet Take 1 (one) tablet by mouth once daily 3 Active indapamide (Lozol) 2.5 MG tablet 3 Active raloxifene (Evista) 60 MG tablet Take 1 (one) tablet by mouth once daily 3 Active sertraline (Zoloft) 100 MG tablet Take 1 (one) tablet by mouth at bedtime 3 Active spironolactone (Aldactone) 100 MG tablet Take 1 (one) tablet by mouth once daily 3 Active ondansetron (Zofran) 8 MG tabletIndicatio ns:Cancer Chemotherapy-In duced Nausea and Vomiting Take 1 (one) tablet by mouth every 8 hours as needed for Nausea/Vomiting Reasons: Nausea and Vomiting caused by Cancer Chemotherapy 30 tablet 3 4 Active LORazepam (Ativan) 0.5 MG tabletIndicatio ns:Cancer Chemotherapy-In duced Nausea and Vomiting Take 1 (one) tablet by mouth every 8 hours as needed for Anxiety (nausea) Reasons: Nausea and Vomiting caused by Cancer Chemotherapy 30 tablet 3 4 Active Additional Information Patient not taking.Reported on 01/20/2025 lidocaine-prilo caleb (Emla) 2.5-2.5 % creamIndication s:Local Anesthesia Apply to port a cath 30-60 minutes prior to chemotherapy and or labs Reasons: Anesthesia to a Specific Part of the Body 30 g 3 4 Active Additional Information Patient not taking.Reported on 05/13/2024 celecoxib (CeleBREX) 100 MG capsule Take 1 (one) capsule by mouth once daily 4 Active zolpidem (Ambien) 10 MG tablet Active omeprazole (PriLOSEC) 20 MG capsule Take 1 (one) capsule by mouth once daily 4 Active Active Problems Problem Noted Date Diagnosed Date [...] & Plan: No changes Primary osteoarthritis 10/13/2019 4 Overview (10/30/2023): Last Assessment & Plan: Patient is well controlled. Continue current treatment. Osteopenia after menopause 10/13/201910/30 Overview (10/30/2023): Last Assessment & Plan: Patient is well controlled. Continue current treatment. Essential hypertension 10/13/2019 4 Overview (10/30/2023): Last Assessment & Plan: Patient is well controlled. Continue current treatment. Primary insomnia 09/16/2017 10/30/2023 Overview (10/30/2023): Last Assessment & Plan: Failed several sleep aides in the past including trazodone, dayvigo. She has been well controlled on ambien jail. Dyslipidemia 09/19/2016 10/30/2023 Overview (10/30/2023): Last Assessment & Plan: Patient is well controlled. Continue current treatment. Barretts esophagus 09/19/2016 10/30/2023 Overview (10/30/2023): Last Assessment & Plan: Still follows with G.I. Encounters Date Type Department Care Team Description 04/12/2025 8:56 AM CDT - 04/12/2025 11:59 PM CDT Hospital Encounter [facility] - CT Scan [address] [place] [address] Lane Park MD Discharge Disposition: Home or Self Care 02/09/2025 Telephone [facility] - CUT AND COVER LINE WORKER [address] [place] [address] Lane Park MD Nurse Only; Follow-up 01/20/2025 1:30 PM CDT Office Visit [facility] - [facility] LINE WORK[facility] [address] [place] [address] Lane Park MD Endometrial cancer (HCC) (Primary Dx) 01/20/2025 Orders Only [facility] - C[employer] AND COVER LINE WORKER [address] [place] [address] Maeve Hernandez RN Endometrial cancer (HCC) 01/20/2025 Travel from Last 3 Months Family History Medical History Relation Name Comments Cancer - Prostate Father Cancer - Lung Mother Relation Name Status Comments Father Mother Social History Tobacco Use Types Packs/Day Years Used Date Smoking Tobacco: Former Cigarettes Smokeless Tobacco: Never Tobacco Cessation:Counseling Given: Not Answered Alcohol Use Standard Drinks/Week Comments Yes 0 [...] on file 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 Gender Identity Not on file Sexual Orientation Not on file Last Filed Vital Signs Vital Sign Reading Time Taken Comments Blood Pressure 124/82 01/20/2025 1:03 PM CDT Pulse 64 05/15/2024 9:07 AM CDT Temperature 36.6 C (97.9 F) 05/15/2024 9:07 AM CDT Respiratory Rate 18 05/15/2024 9:07 AM CDT Oxygen Saturation 100% 05/15/2024 9:07 AM CDT Inhaled Oxygen Concentration - - Weight 60.3 kg (133 lb) 01/20/2025 1:03 PM CDT Height 157.5 cm (5' 2) 01/20/2025 1:03 PM CDT Body Mass Index 24.33 01/20/2025 1:03 PM CDT Plan of Treatment Upcoming Encounters Date Type Department Care Team (Late st Contact Info) Description 04/21/2025 11:00 AM CDT Office Visit [facility] - CUT AND COVER LINE WORKER [address] [place] [address] Lane Park MD [address] [place] [address] Health Maintenance Due Date Last Done Comments BONE DENSITY TESTING 1945 HEPATITIS C SCREENING 07/02/1964 DTAP/TDAP/TD VACCINES (1 - Tdap) 1965 PNEUMOCOCCAL VACCINE 50+ (1 of 2 - PCV) 1965 ZOSTER VACCINE (1 of 2) 1996 Respiratory Syncytial Virus (RSV) Vaccine Pt: or over 60 yrs (1 - 1-dose 75+ series) 2021 COVID-19 VACCINE ( season) 2024 06/21/2023, 07/03/2022, 06/22/2021, Additional history exists DEPRESSION SCREENING 09/09/2024 11/04/2023 MEDICARE AWV CALENDAR YEAR 2024 INFLUENZA VACCINE (#1) 2025 , 06/09/2022, 06/07/2020, Additional history exists HEPATITIS B VACCINE Aged Out No longe r eligible based on patient's age to complete this topic HIB VACCINE Aged Out No longer eligi ble based on patient's age to complete this topic HPV VACCINE Aged Out No longer eligi ble based on patient's age to complete this topic MENINGOCOCCAL (Group B) VACCINE SHARED DECISION-MAKING Aged Out No longer eligible based on patient's age to complete this topic MENINGOCOCCAL GROUPS A/C/Y/W VACCINE Aged Out No longer eligible based on patient's age to complete this topic Procedures Procedure Name Priority Date/Time Associated Diagnosis Comments CT CHEST ABDOMEN PELVIS W CONT Routine 04/12/2025 10:42 AM CDT Endometrial cancer (HCC) ISTAT CREATININE Routine 04/12/2025 10:3 0 AM CDT from Last 3 Months Results * CT Chest Abdomen Pelvis W [...] (president sales and marketing). > Dictated by Big Data Platform Architect I, Pete Lombardo MD have personally reviewed and interpreted this examination/study. > Interpreting Provider: Pete Lombardo MD on 04/12/2025 12:43 PM Narrative 04/12/2025 12:43 PM CDT PROCEDURE: CT CHEST ABDOMEN PELVIS W CONT, DATE/TIME OF EXAM: 04/12/2025 10:43 AM, LOCATION [facility] INDICATION: C54.1: Endometrial cancer (HCC) COMPARISON: CT [...] DATE/TIME OF EXAM: 04/12/2025 10:43 AM, LOCATION [facility] INDICATION: C54.1: Endometrial cancer (HCC) COMPARISON: CT [...] Redemonstrated mild superior endplate compression deformity of [id number] body with less than 20% height loss. [...] (president sales and marketing). > Dictated by Big Data Platform Architect I, Pete Lombardo MD have personally reviewed and interpreted this examination/study. > Interpreting Provider: Pete Lombardo MD on 04/12/2025 12:[address] ORDERABLES Final Result * (ABNORMAL) ISTAT CREATININE (04/12/2025 10:30 AM CDT) [facility] Signature Creatinine POCT 1.30 0.60 - 1.30 mg/dL 04/12/2025 10:33 AM CDT [facility] eGFR by CKD-EPI 42(L) >90 mL/min/1.7 3 m2 04/12/2025 10:33 AM CDT [facility] Sample iSTAT DOUG 04/12/2025 10:33 AM CDT [facility] Blood BLOOD SPECIMEN / Unknown 04/12/2025 10:30 AM CDT 04/12/2025 10:[address] MD LAB - POINT OF CARE ORDERABLES Final Result [facility] [address] [place] [address] from Last 3 Months Insurance [facility] MEDICARE ADV MEDICARE [facility] MEDICARE ADV SELF PAY NO INSURANCE Member Subscriber Plan / Payer (Ef fective for All Dates) Name:Sravanthi Mayberry Member ID:Not on file Relation to Subscriber:Not on file Name:SRAVANTHI MAYBERRY Subscriber ID:Not on file (Home) Address: [address] [place], [place] [address] [place] [address] Payer ID:Not on file Group ID:Not on file Type:Self Pay Address: [place], [place] Care Teams Pharmacy Resident Relationship Specialty Start Date End Date Kieran Hernández DO [address] [place] [address] PCP - General Family Medicine 09/18/23
--- OUTSIDE RECORDS SUMMARY | 2025-04-13 15:07 | XMS_ITS | Referral Summary ---
Author Organization [facility] Address [address] [place] [address] Care Team Providers Care Dag Coater Name Role Phone Kieran Hernández DO Primary Care Provider + Allergies Active Allergy Reactions Criticality Noted Date Comments Niacin Hives Medium Medications raloxifene (EVISTA) 60 mg tablet Take 1 tablet (60 mg total) by mouth daily 12/01/2018 Active spironolactone (ALDACTONE) 100 mg tablet TK 1 T PO D 1 08/03/2019 Active lemborexant (Dayvigo) 5 mg tabletIndicatio ns:Primary insomnia Take 5 mg by mouth nightly 30 tablet 5 11/09/2020 Active montelukast (SINGULAIR) 10 mg tablet TAKE 1 TABLET(10 MG) BY MOUTH DAILY 30 tablet 5 10/17/2021 Active atorvastatin (LIPITOR) 80 mg tablet TAKE 1 TABLET(80 MG) BY MOUTH DAILY 90 tablet 1 05/20/2023 Active indapamide (LOZOL) 2.5 mg tablet TAKE 1 TABLET(2.5 MG) BY MOUTH DAILY 90 tablet 1 07/17/2023 Active omeprazole (PriLOSEC) 20 mg capsule TAKE 1 CAPSULE(20 MG) BY MOUTH TWICE DAILY 180 capsule 1 07/17/2023 Active sertraline (ZOLOFT) 100 mg tablet TAKE 1 TABLET(100 MG) BY MOUTH DAILY 90 tablet 1 07/17/2023 Active zolpidem (AMBIEN) 10 mg tablet TAKE 1 TABLET(10 MG) BY MOUTH EVERY NIGHT NEEDED FOR SLEEP 30 tablet 5 07/22/2023 Active LORazepam (ATIVAN) 0.5 mg tablet Take 1 tablet (0.5 mg total) by mouth every 8 (eight) hours as needed 10/17/2023 Active ondansetron (ZOFRAN) 8 mg tablet Take 1 tablet (8 mg total) by mouth every 8 (eight) hours as needed 10/17/2023 Active Active Problems Problem Noted Date Diagnosed Date Chronic renal impairment, stage 3b 04/24/2023 Assessment & Plan (04/24/2023 1:10 PM CDT): Stop nsaid Recheck sma 7 Encounter for Medicare annual wellness exam 04/09 Assessment & Plan (04/24/2023 1:09 PM CDT): Routine labs Dexa scan Assessment & Plan (04/23/2022 12:55 PM CDT): Chart reviewed Order lab Pneumovax 23 Full code status 04/19/2021 Assessment & Plan (04/23/2022 12:55 PM CDT): No changes Assessment & Plan (04/19/2021 1:38 PM CDT): Discussed with patient approximately 20minutes End of life issues/Advanced Directives/Healthcare Surrogate. Discussed DNR. Encouraged to discuss further with family and consult estate planning attorney or complete [place] approved form, which I would be glad to assist them with completion. All questions answered. polst form filled out and signed Essential hypertension 10/13/2019 Assessment & Plan (04/23/2022 12:55 PM CDT): Patient is well controlled. Continue current treatment. Assessment & Plan (11/09/2020 1:52 PM INSTALLER SOFT TOP): Patient is well controlled. Continue current treatment. Assessment & Plan (04/12/2020 1:33 PM CDT): Patient is well controlled. Continue current treatment. Primary osteoarthritis 10/13/2019 Assessment & Plan (04/23/2022 12:55 PM CDT): Patient is well controlled. Continue current treatment. Osteopenia after menopause 10/13/2019 Assessment & Plan (04/23/2022 12:55 PM CDT): Patient is well controlled. Continue current treatment. Depression, major, recurrent 02/27/2019 Assessment & Plan (04/23/2022 12:56 PM CDT): Patient is well controlled. Continue current treatment. Assessment & Plan (02/27/2019 1:20 PM CDT): Increase zoloft lab Primary insomnia 09/16/2017 Assessment & Plan (10/12/2022 11:56 AM INSTALLER SOFT TOP): Failed several sleep aides in the past including trazodone, dayvigo. She has been well controlled on ambien halfway. Assessment & Plan (04/23/2022 12:56 PM CDT): Patient is well controlled. Continue current treatment. Assessment & Plan (11/09/2020 1:52 PM INSTALLER SOFT TOP): Doing well Refill med Barretts esophagus 09/19/2016 Assessment & Plan (04/23/2022 12:56 PM CDT): Still follows with G.I. Assessment & Plan (04/12/2020 1:30 PM CDT): Refer to G.I. Needs a EGD and colonoscopy Dyslipidemia 09/19/2016 Assessment & Plan (04/23/2022 12:56 PM CDT): Patient is well controlled. Continue current treatment. Assessment & Plan (11/09/2020 1:52 PM INSTALLER SOFT TOP): Patient is well controlled. Continue current treatment. Assessment & Plan (04/12/2020 1:30 PM CDT): Check lab Assessment & Plan (02/25/2019 2:08 PM CDT): stable Resolved Problems Problem Noted Date Diagnosed Date Resolved Date Pulmonary nodule 02/27/2016 04/23/2022 Immunizations Immunization Administration Dates Next Due Influenza, Quad, Adjuvantated, Intramuscular Influenza, Trivalent, Adjuvanted, Intramuscular 07/09/2019,06/23/2017 Influenza, Trivalent, IM (MDV) 07/02/2013,2011 Influenza, Trivalent, Preservative Free, Intramu scular 07/26/2015 Influenza, Unspecified 06/09/2022,07/10/2019 Pfizer SARS-CoV-2 Monovalent Vaccination (12+ Yrs) PURPLE 06/22/2021 Pfizer Sars-Cov-2 Bivalent Vaccination (5-11 YRS ) 07/03/2022 Pneumococcal Conjugate PCV 13 04/19/2021 Pneumococcal Polysaccharide PPV23 04/23/2022 ZOSTER LIVE 07/02/2013 ZOSTER Recombinant 04/12/2020 Social History Tobacco Use Types Packs/Day Years Used Date Smoking Tobacco: Former Smokeless Tobacco: Never Tobacco Cessation:Counseling Given: Not Answered Alcohol Use Standard Drinks/Week Comments Yes 0 (1 standard drink = 0.6 oz pur e alcohol) occasionally AUDIT-C Answer Date Recorded Q1: How often do you have a drink containing alc ohol? Monthly or less 04/07/2025 Q2: How many drinks containi ng alcohol do you have on a typical day when you are drinking? 1 or 2 04/07/2025 Q3: How often do you have si x or more drinks on one occasion? 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 Gender Identity Not on file Sexual Orientation Not on file Last Filed Vital Signs Vital Sign Reading Time Taken Comments Blood Pressure 126/84 04/24/2023 12:49 PM CDT Pulse 78 04/24/2023 12:49 PM CDT Temperature 36.8 C (98.2 F) 04/24/2023 12:49 PM CDT Respiratory Rate 18 04/24/2023 12:49 PM CDT Oxygen Saturation 95% 04/24/2023 12:49 PM CDT Inhaled Oxygen Concentration - - Weight 62.6 kg (138 lb) 04/07/2025 4:19 PM CDT Height 157.5 cm (5' 2) 04/07/2025 4:19 PM CDT Body Mass Index 25.24 04/07/2025 4:19 PM CDT Plan of Treatment Upcoming Encounters Date Type Department Care Team (Late st Contact Info) Description 04/19/2025 11:25 AM CDT Hospital Encounter [facility] [place] [address] [place] [address] Umberto Swift MD [address] [place] [address] 04/19/2025 11:25 AM CDT Anesthesia Event [facility] [place] [address] [place] [address] Jordon Colon MD [address] [facility] [address] [facility] [address] [place] [address] 04/19/2025 11:25 AM CDT - 04/19/2025 12:10 PM CDT Surgery [facility] [place] [address] [place] [address] Umberto Swift MD [address] [place] [address] REMOVAL PORT A CATH Scheduled Procedures Name Priority Associated Diagnoses Date/Ti me REMOVAL PORT A CATH NON USE 04/19/2025 11:25 AM CDT Procedures Procedure Name Priority Date/Time Associated Diagnosis Comments SCREENING MAMMOGRAM BILATERAL W TI Schedule Routine, Read Routine (OP Routine) 08/10/2022 HEPATITIS C ANTIBODY Routine 07/10/2022 9:26 AM CDT Need for hepatitis C screening test HM COLONOSCOPY Routine 10/28/2015 from Last 3 Months or Most Recently Relevant to Health Maintenance Results * Screening Mammogram Bilateral W Ti (08/10/2022) Anatomical Region Laterality Modality Breast Bilateral Mammography 08/10/2022 Historical Provider IMG MAMMO PROCEDURES Sophy l Result * Hepatitis C antibody (07/10/2022 9:26 AM CDT) Hep C Ab <0.1 0.0 - 0.9 s/co ratio [facility] - 01 Comment: Negative: < 0.8 Indeterminate: 0.8 - 0.9 Positive: > 0.9 HCV antibody alone does not differentiate between previous resolved infection and active infection. The CDC and current clinical guidelines recommend that a positive HCV antibody result be followed up with an HCV RNA test to support the diagnosis of acute HCV infection. [facility] offers Hepatitis C Virus (HCV) RNA, Diagnosis, MICHAEL (840123) and Hepatitis C Virus (HCV) Antibody with reflex to Quantitative Real-time PCR ([id number]). Blood specimen (specimen) 07/10/2022 9:26 AM CDT 07/10/2022 Narrative [facility] - 07/11/2022 7:36 AM CDT Performed at: - [address] [id number] Medicaid Eligibility Specialist: Giacomo Marquez PhD, Phone: [phone] Kieran Hernández DO LAB MICROBIOLOGY - GENER AL ORDERABLES Final Result [facility] - 01 * COLONOSCOPY (10/28/2015) Colonoscopy Normal Historical Provider HEALTH MAINTENANCE Final Result from Last 3 Months or Most Recently Relevant to Health Maintenance Insurance [facility] [employer] [facility] [employer] Care Teams Dag Coater Relationship Specialty Start Date End Date Kieran Hernández DO PCP - General Family Medicine 02/25/19
--- OUTSIDE RECORDS SUMMARY | 2025-04-13 15:07 | XMS_ITS | Clinical Summary ---
Author Organization [facility] Address [facility] [place] [address] Care Team Providers Care Secretarial Teacher Name Role Phone Staley Kieran Delaney DO Primary Care Provider [phone] Immunizations Immunization Administration Dates Next Due PFIZER COVID-19 (5-11) mRNA, LNP-S, BIVALENT, PF, 10 MCG/0.2 ML DOSE 07/03/2022 PFIZER COVID-19 (ORIGINAL FO RMULATION, PURPLE CAP) mRNA, LNP-S, PF, 30 MCG/0.3 ML DOSE 06/22/2021,11/03/2020,10/13/2020 Social History Tobacco Use Types Packs/Day Years Used Date Smoking Tobacco: Never Assessed Comments Unknown Sex and Gender Information Value Date Recorded Sex Assigned at Not on file Legal Sex Female 7:19 PM CDT Gender Identity Not on file Sexual Orientation Not on file Plan of Treatment Health Maintenance Due Date Last Done Comments Hepatitis C 1963 DTaP, Tdap and Td Vaccines (1 - Tdap) 1964 Annual Medicare Wellness Visit 2011 Dexa Scan (General) 2011 Zoster Vaccines (3 of 3) 06/07/2020 04/12/2020, 06/10 RSV Immunization or 60+ Years (1 - 1-dose 75+ series) 2021 COVID-19 Vaccine ( - season) 2024 07/03/2022, 06/22/2021, 11/03/2020, Additional history exists Pneumococcal Vaccine: 50+ Years Completed 04/23/2022, 04/19/2021 Meningococcal B Vaccine Aged Out No l onger eligible based on patient's age to complete this topic Meningococcal Vaccine Aged Out No maria m case eligible based on patient's age to complete this topic RSV Immunizations Under 20 Months Aged Out No longer eligible based on patient's age to complete this [place] [address] MED [facility] MEDICARE Care Teams Secretarial Teacher Relationship Specialty Start Date End Date Kieran Staley DO PCP - General 11/05/15
--- OUTSIDE RECORDS SUMMARY | 2025-04-13 15:07 | XMS_ITS | Clinical Summary ---
Author Organization [facility] Address [address] [place] [address] Care Team Providers Care In Flight Crew Member Name Role Phone Kieran Hernández DO Primary [...] to discuss further with family and consult trial attorney or complete [place] approved form, which I would be glad to assist them with completion. All questions answered. polst form filled out and signed Essential hypertension 10/13/2019 Assessment & Plan (04/23/2022 12:55 PM CDT): Patient is well controlled. Continue current treatment. 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 Continue current treatment. [...] 09/16/2017 Assessment & Plan (10/12/2022 11:56 AM CABLE DRILLER): Failed several sleep aides in the past including trazodone, dayvigo. She has been well controlled on ambien intermediate. Assessment & Plan (04/23/2022 12:56 PM CDT): Patient is well controlled. Continue current treatment. Assessment & Plan (11/09/2020 1:52 PM CABLE DRILLER): Doing well Refill med Barretts esophagus 09/19/2016 Assessment & Plan (04/23/2022 12:56 PM CDT): Still follows with [facility] Assessment & Plan (04/12/2020 1:30 PM CDT): Refer to [facility] Needs a EGD and colonoscopy Dyslipidemia 09/19/2016 Assessment & Plan (04/23/2022 12:56 PM CDT): Patient is well controlled. Continue current treatment. 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 Continue current treatment. [...] 04/23/2022 ZOSTER LIVE 07/02/2013 ZOSTER Recombinant 04/12/2020 Surgical History Surgery Date Site/Laterality Comments TONSILECTOMY, ADENOIDECTOMY, BILATERAL MYRINGOTOMY AND TUBES HYSTERECTOMY PORTACATH PLACEMENT Medical History Medical History Date Comments GERD (gastroesophageal reflux disease) Anxiety Hyperlipidemia Insomnia Essential hypertension 10/13/2019 Primary osteoarthritis 10/13/2019 Motion sickness Hx of right breast biopsy x2 Family History Medical History Relation Name Comments Heart disease Father Prostate cancer Father Heart disease Mother Lung cancer Mother Relation Name Status Comments Father Mother [...] on file Legal Sex Female 3:09 AM CABLE DRILLER Gender Identity Not on file Sexual Orientation Not on file Obstetrics History Last Filed Vital Signs Vital Sign Reading [...] Description 04/19/2025 11:25 AM CDT Hospital Encounter [facility] [address] [place] [id number] Umberto Swift MD [address] [place] [id number] 04/19/2025 11:25 AM CDT Anesthesia Event [facility] [address] [place] [phone] Jordon Colon MD [address] [facility] [address] [address] 04/19/2025 11:25 AM CDT - 04/19/2025 12:10 PM CDT Surgery [facility] [address] [place] [id number] Umberto Swift MD [address] [place] [id number] REMOVAL PORT A CATH Scheduled Procedures Name Priority Associated Diagnoses Date/Ti me REMOVAL PORT A CATH NON USE 04/19/2025 11:25 AM CDT Health Maintenance Due Date Last Done Comments Osteoporosis Screening-Bone Density Scan 1945 DTaP/Tdap/Td Vaccine (1 - Tdap) 1957 Hepatitis B Screening 1963 Zoster Vaccine (3 of 3) 06/07/2020 04/12/2020, 07/02 Depression Screening 04/24/2024 04/24/2023, 04/23/2022, 04/19/2021, Additional history exists Fall Risk Assessment 04/24/2024 04/24/2023, 04/23/2022, 04/19/2021, Additional history exists Well Visit 65+ 04/24/2024 04/24/2023, 04/09, 04/19/2021, Additional history exists Covid-19 Vaccine (4 - 2023-2 5 season) 2024 07/03/2022, 06/22/2021, 11/03/2020, Additional history exists Influenza Vaccine (#1) 2025 , 06/07/2020, 07/10/2019, Additional history exists Colon Cancer Screening-CT Colonography Discontinued 10/28/2015 Colon Cancer Screening-Colonoscopy Discontinued 10/28/2015 Colon Cancer Screening-DNA Stool Discontinued 10/28/19 Colon Cancer Screening-FIT Discontinued 10/28/2015 Colon Cancer Screening-FOBT Discontinued 10/28/2015 Colon Cancer Screening-Sigmoidoscopy Discontinued 10/28/2015 Colorectal Cancer Screening Discontinued Pneumococcal vaccine 65+ Completed 04/23/2022, 04/09 Hepatitis C Screening Completed 07/10/2022 Breast Cancer Screening-Mammogram Discontinued 022, 04/15/2019 Procedures Procedure Name Priority Date/Time Associated Diagnosis [...] Ab <0.1 0.0 - 0.9 s/co ratio LABCO - 01 Comment: Negative: < 0.8 Indeterminate: 0.8 - 0.9 Positive: > 0.9 HCV antibody alone does not differentiate between previous resolved infection and active infection. The CDC and current clinical guidelines recommend that a positive HCV antibody result be followed up with an HCV RNA test to support the diagnosis of acute HCV infection. [facility] offers Hepatitis C Virus (HCV) RNA, Diagnosis, MICHAEL (520153) and Hepatitis C Virus (HCV) Antibody with reflex to Quantitative Real-time PCR (260105). Blood specimen (specimen) 07/10/2022 9:26 AM CDT 07/10/2022 Narrative [facility] - 07/11/2022 7:36 AM CDT Performed at: - [address] [id number] [employer]: Giacomo Marquez PhD, Phone: [phone] Kieran Hernández DO LAB MICROBIOLOGY - GENER AL ORDERABLES Final Result [facility] - 01 * COLONOSCOPY (10/28/2015) Colonoscopy Normal Historical Provider HEALTH MAINTENANCE Final Result from Last 3 Months or Most Recently Relevant to Health Maintenance Insurance [employer] MED[employer]ARE [facility] MEDICARE Address: [facility] [id number] [place] [address] [facility] Address: [address] [place] [address] Care Teams In Flight Crew Member Relationship Specialty Start Date End Date Kieran Hernández DO PCP - General Family Medicine 02/25/19
== END 2025-04-13 15:01 | disposition home or self-care (01) ==
LOC: ANHIMG 15:03
PROVIDERS: PCP Family Medicine; Visit Provider Obstetrics & Gynecology Gynecology
DX: Z12.31 Encounter for screening mammogram for malignant neoplasm of breast (principal)
CPT/HCPCS: 77063; 77067